=== PATIENT | male | born 1995 | race Caucasian/White ===

== ENCOUNTER 2018-07-19 00:57 | Emergency (ER) | payer MEDICAID ==
[~2018-07-19] VITALS: Ht 167.6 cm; Wt 121.1 kg
[2018-07-19 01:01] VITALS: BP 146/91; Ht 167.6 cm; Wt 121.1 kg
== END 2018-07-19 03:10 | disposition home or self-care (01) ==
LOC: ED 00:57
DX: J45.909 Unspecified asthma, uncomplicated (principal); T78.40XA Allergy, unspecified, initial encounter; X58.XXXA Exposure to other specified factors, initial encounter
CPT/HCPCS: J7512; J7620; Q0092